=== PATIENT | female | born 1945 | race Asian ===

== ENCOUNTER 2021-06-10 16:18 | Emergency (ER) | payer MEDICARE, MEDICAID ==
[~2021-06-10] VITALS: Ht 157.5 cm; Wt 68.0 kg
--- NOTE | 2021-06-10 16:40 | NUR ---
Pt triaged and placed in waiting room.
[2021-06-10 16:45] VITALS: BP_SYST 149
--- NOTE | 2021-06-10 17:10 | NUR ---
Placed in room 1 . Placed on security monitor, blood pressure machine and pulse oximeter. To gown for exam. Side rails up. Report given to OFE Garcia.
--- NOTE | 2021-06-10 17:12 | NUR ---
PATIENT BROUGHT IN ACCOMPANIED BY DAUGHTER FOR HEADACHE S/P UNWITNESSED FALL ON THURSDAY. PATIENT REPORTS SHE WAS MAKING HER BED AND WOKE UP ON THE FLOOR ON HER RIGHT SIDE. SINCE THEN HAS PAIN TO RIGHT SIDE HEAD PAIN WITH NUMBNESS AND TINGLING, RIGHT SHOULDER, HIP AND KNEE PAIN. PT HAS HX OF DM, HTN, HLD. PAIN 02/02. AOX4 AMBULATORY, [place] TO LEFT EAR. NO OTHER COMPLAINTS/INJURIES PER PATIENT OR NOTED
--- NOTE | 2021-06-10 17:35 | NUR ---
OUT OF BED TO RESTROOM TO PROVIDE URINE SAMPLE. AMBULATED WITH STEADY GAIT
--- NOTE | 2021-06-10 17:54 | NUR ---
PATIENT OFF UNIT TO CT SCAN WITH [employer] PILOT
[2021-06-10] MEDS ORDERED: AMLO5TAB4 PO (18:09)
[2021-06-10] MEDS ORDERED: PANT40TA45 PO (18:09)
[2021-06-10] MEDS ORDERED: ASPI-1393 PO (18:09)
[2021-06-10] MEDS ORDERED: OMEG1CAP55 PO (18:09)
[2021-06-10] MEDS ORDERED: ATEN-41 PO (18:09)
[2021-06-10] MEDS ORDERED: ROSU20TA32 PO (18:09)
[2021-06-10] MEDS ORDERED: METO25TA6 PO (18:09)
[2021-06-10] MEDS ORDERED: LOSA50TA3 PO (18:09)
[2021-06-10] MEDS ORDERED: EZET10TA PO (18:09)
[2021-06-10] MEDS ORDERED: METF-379 PO ×2 (18:09)
--- NOTE | 2021-06-10 18:09 | NUR ---
Medication reconciliation completed with information provided by PATIENT. Any prior medication reconciliation on file was reviewed and corrected.
[2021-06-10] MEDS ORDERED: MECLIZINE HCL 25 MG TABLET (ANITVERT) PO ONE (18:15)
[2021-06-10 18:23] LABS: BASOPHILS % (AUTO) 0.3 % (0.0-2.0); EOSINOPHILS % (AUTO) 0.6 % (0.0-4.0); HEMATOCRIT 38.9 % (36-48); HEMOGLOBIN 13.4 g/dL (12.0-16.0); LYMPHOCYTES # (AUTO) 2.5 K/uL (1.0-5.5); MEAN CORPUSCULAR HEMOGLOBIN 32 pg (27-31); MEAN CORPUSCULAR HGB CONC 34 % (32-36); MEAN CORPUSCULAR VOLUME 93 fL (79.0-98.0); MONOCYTES # (AUTO) 0.6 K/uL (0.0-1.0); MONOCYTES % (AUTO) 9.5 % (1.7-9.3); NEUTROPHILS # (AUTO) 3.4 K/uL (1.8-7.7); NEUTROPHILS % (AUTO) 51.6 % (40.0-70.0); PLATELET COUNT (AUTO) 238 K/uL (130-430); RED BLOOD CELL COUNT(AUTO) 4.18 MIL/uL (4.2-6.2); RED CELL DISTRIBUTION WIDTH 13.1 % (9.0-15.0); WHITE BLOOD COUNT (AUTO) 6.6 K/uL (4.8-10.8)
--- NOTE | 2021-06-10 18:26 | NUR ---
ER Dr. VILLALOBOS at bedside examining patient.
[2021-06-10 18:32] LABS: BILIRUBIN,URINE NEGATIVE (NEGATIVE); COLOR,URINE YELLOW (YELLOW); GLUCOSE,URINE NEGATIVE (NEGATIVE); KETONES,URINE NEGATIVE (NEGATIVE); LEUKOCYTE ESTERASE ,URINE 2+ (NEGATIVE); NITRITE, URINE NEGATIVE (NEGATIVE); PROTEIN URINE NEGATIVE (NEGATIVE); PROTHROMBIN TIME 10.2 SECS (9.5-12.5); UROBILINOGEN,URINE 0.2 (0.2-1.0)
[2021-06-10 18:33] LABS: BLOOD, URINE TRACE (NEGATIVE); CLARITY/URINE SLIGHTLY HAZY (CLEAR)
[2021-06-10 18:36] LABS: ANION GAP 6 (5-15); CALCIUM 9.5 mg/dL (8.4-11.0); CHLORIDE 106 mmol/L (98-107); CREATININE 0.97 mg/dL (0.55-1.30); GLUCOSE 110 mg/dL (70-99); POTASSIUM 3.5 mmol/L (3.5-5.1); SODIUM SERUM 142 mmol/L (136-145); UREA NITROGEN, BLOOD 18 mg/dL (8-21)
[2021-06-10 18:41] LABS: ALANINE AMINOTRANSFERASE 25 U/L (12-78); ALBUMIN 4.2 g/dL (3.4-4.8); ASPARTATE AMINOTRANSFERASE 19 U/L (10-37); TOTAL BILIRUBIN 0.6 mg/dL (0.0-1.0)
[2021-06-10 19:24] LABS: BACTERIA,URINE FEW /HPF (None Seen); MUCUS,URINE None Seen /LPF (None Seen); RBC,URINE 0-3 /HPF (0-3)
[2021-06-10] MEDS ORDERED: MECL-160 PO (19:27)
[2021-06-10] MEDS ORDERED: NITR-85 PO (19:27)
[2021-06-10 19:42] VITALS: BP_SYST 126
--- NOTE | 2021-06-10 19:42 | NUR ---
Patient given written and verbal discharge instructions and verbalizes understanding. ER MD discussed with patient the results and treatment provided. Patient in stable condition. ID arm band removed. IV catheter removed intact and dressing applied, no active bleeding. Rx of MACROBID AND ANTIVERT given. Patient educated on pain management and to follow up with PMD. Pain Scale 0/10 Opportunity for questions provided and answered. Medication side effect fact sheet provided.
== END 2021-06-10 19:42 | disposition home or self-care (01) ==
LOC: SED 16:18
DX: S06.0X0A Concussion without loss of consciousness, initial encounter (principal); I10 Essential (primary) hypertension; Z79.899 Other long term (current) drug therapy; W18.39XA Other fall on same level, initial encounter; Y93.89 Activity, other specified; Y92.89 Other specified places as the place of occurrence of the external cause; Y99.8 Other external cause status
CPT/HCPCS: 36415; 70450-TC; 71045; 76376; 80053; 81000; 83605; 84484; 85025; 85610-TC; 85730-TC; 87040-TC; 87086; 93005; 99285

== ENCOUNTER 2022-09-14 13:50 | Emergency (ER) | payer MEDICARE, MEDICAID ==
[~2022-09-14 13:50] MED LIST: AMLO5TAB4 PO; ASPI-1393 PO; ATEN-41 PO; EZET10TA PO; LOSA50TA3 PO; MECL-160 PO; METF-379 PO; METO25TA6 PO; NITR-85 PO; OMEG1CAP55 PO; PANT40TA45 PO; ROSU20TA32 PO
[2022-09-14] MEDS ORDERED: KETOROLAC TROMETHAMINE 60 MG/2 ML VIAL IM ONE (14:15)
[2022-09-14] MEDS ORDERED: IBUP-1971 PO (15:29)
[2022-09-14] MEDS ORDERED: BACL20TA PO (15:29)
[2022-09-14] MEDS ORDERED: traMADol HCL HCL 50 MG TABLET (ULTRAM) PO ONE (16:00)
[2022-09-14 19:59] VITALS: BP_SYST 148
== END 2022-09-14 18:00 | disposition home or self-care (01) ==
LOC: SED 13:50
DX: S30.0XXA Contusion of lower back and pelvis, initial encounter (principal); E78.00 Pure hypercholesterolemia, unspecified; I10 Essential (primary) hypertension; Z79.899 Other long term (current) drug therapy; W01.0XXA Fall on same level from slipping, tripping and stumbling without subsequent striking against object, initial encounter; Y93.89 Activity, other specified; Y92.89 Other specified places as the place of occurrence of the external cause; Y99.8 Other external cause status
CPT/HCPCS: 99283; 72100; J1885